=== PATIENT | male | born 1935 | race Caucasian/White ===

== ENCOUNTER 2018-12-21 11:20 | Day surgery (SDC) | payer MEDICARE ==
[2018-12-20 11:58] VITALS: BMI 38.7
--- NOTE | 2018-12-21 14:13 | MRI ---
MRI LUMBAR SPINE WITH AND WITHOUT CONTRAST: DATE: 12/21/2018 HISTORY: 83-year-old male with lumbar radiculopathy and low back pain COMPARISON: None available TECHNIQUE: Multiple sequences obtained in axial and sagittal planes, pre and post IV injection of gadolinium-bas ed contrast agent. FINDINGS: For the purposes of this report, it will be assumed that there are 5 lumbar-type vertebrae. Vertebral body heights are maintained. Marrow edema around a Schmorl's node at right lateral endplate of L3. Otherwise no major bone marrow signal abnormality. No major spondylolisthesis. Conus medullaris terminates at L1. Because of the extremely severe central spinal canal stenosis at L3-4, there is tortuosity of the cauda equina at al l levels superior to this and moderately at all levels inferior to this. No abnormal enhancement of cauda equina. No epidural abscess. Presence of posterior element metallic hardware at lower levels ca uses magnetic susceptibility artifact, making it difficult to evaluate for abnormal enhancement and marrow signal abnormality at the lower levels, especially at the posterior elements. T12-L1:Mild to moderate ligamentum flavum thickening. Mild bilateral facet DJD. Disc space maintained . Minimal disc bulge. Mild central spinal canal stenosis. Moderate right neural foraminal stenosis. Mild to moderate left neural foraminal stenosis. L1-2:Mild disc space narrowing. Mild to moderate diffuse disc bulge. Moderate bilateral neural forami nal stenosis. L2-3:Moderate disc space narrowing. Prominent diffuse disc bulge. Moderate bilateral neural foraminal stenosis. Severe central spinal canal stenosis. Moderate bilateral facet DJD. Slight degenerative retrolisthesis of L2 on L3. L3-4:Severe bilateral facet DJD with significant hypertrophy. Moderate bilateral neural foraminal brandon nosis, left worse than right. Mild to moderate disc space narrowing. In addition to diffuse disc bulge, there is a small-moderate sized central disc herniation with slight superior migration of extr uded disc material not quite reaching pedicle level of L3. Extremely severe central spinal canal stenosis. L4-5:Moderate right neural foraminal stenosis. Possibly severe left neural foraminal stenosis, althou gh left posterior element metallic hardware magnetic susceptibility artifact carotid resulted in apparently worst degree of neural foraminal stenosis at than actually present. Likewise, the presence of bilateral posterior element metallic hardware causes susceptibility artifact that makes it difficult to evaluate the degree of central spinal canal stenosis and especially lateral recess steno sis. Central spinal canal stenosis is probably not severe. Disc space maintained. L5-S1:Severe disc space narrowing. No central stenosis or lateral recess stenosis. Posterior element metallic hardware makes it impossible to evaluate the degree of neural foraminal stenosis. IMPRESSION: 1) lumbar spondylosis with multilevel degenerative disc disease and facet osteoarthrosis of varying d egrees. 2) extremely severe central spinal canal stenosis at L3-4. 3) severe central spinal canal stenosis at L2-3. 4) posterior element metallic hardware causes magnetic susceptibility artifact, which makes it diffic ult to evaluate degree of neural foraminal stenosis bilaterally at L5-S1 and on the left at L4-5, and difficult to evaluate the degree of central spinal canal stenosis at L4-5.
[2018-12-21] MEDS ORDERED: HYDROcodone/Acetaminophen 5/325 mg Tablet ONE (14:18)
== END 2018-12-21 15:00 | disposition home or self-care (01) ==
LOC: SDC/OP 11:20
PROVIDERS: ATTEND Internal Medicine
DX: M47.26 Other spondylosis with radiculopathy, lumbar region (principal); M51.16 Intervertebral disc disorders with radiculopathy, lumbar region; M48.061 Spinal stenosis, lumbar region without neurogenic claudication; G89.29 Other chronic pain; F17.210 Nicotine dependence, cigarettes, uncomplicated; I11.9 Hypertensive heart disease without heart failure; Z79.82 Long term (current) use of aspirin; Z79.899 Other long term (current) drug therapy; Z88.0 Allergy status to penicillin
CPT/HCPCS: 72158

== ENCOUNTER 2018-12-25 14:02 | Outpatient (CLI) | payer MEDICARE ==
--- NOTE | 2018-12-25 15:03 | CT ---
CT LUMBAR SPINE WITHOUT CONTRAST Multiplanar reconstruction and 3D post processing. INDICATION: Lumbar stenosis with claudication. Back pain. FINDINGS: Lumbar vertebrae maintain height. Moderate degenerative changes are present with osteophytes from al l lumbar vertebrae. Degenerative disk changes are noted. Vacuum phenomenon was seen at L3-4 and L4- 5. Loss of disk space is prominent at L5-S1. At L1-2, mild disk bulge. Prominent facet hypertrophy. Mild central canal stenosis. At L2-3, slight posterolisthesis. Disk bulge. Prominent facet and ligamentous hypertrophy. Severe central canal stenosis. Bilateral foraminal stenosis. At L3-4, degenerative disk change. Mild anterolisthesis. Diffuse disk bulge. Prominent facet hyper trophy. Severe central canal stenosis. Bilateral foraminal stenosis. At L4-5, broad-based disk bulge. Severe facet hypertrophy. Severe central canal stenosis. Bilatera l foraminal stenosis. Pedicle screws at L5. The left pedicle screw courses along the superior margin of the left pedicle a nd encroaches into the inferior aspect of the left foramina. There are posterior laminectomy changes at this level. At L5-S1, disk bulge and hypertrophic change. Facet hypertrophy. Mild central canal stenosis. Bila teral foraminal stenosis. Bilateral pedicle screws at S1 extend along the superior aspect of the pedicle and encroach into the inferior aspect of the foramen on both sides. IMPRESSION: 1. Severe central canal stenosis at L2-3 and L3-4 with foraminal stenosis described above. Postoper ative changes at L4-5 and L5-S1 as described. 2. Pedicle screw placement as noted above. POS: CHARITY
== END 2018-12-25 14:03 | disposition home or self-care (01) ==
LOC: TBSIIMAG 14:02
PROVIDERS: ATTEND Neurological Surgery
DX: M48.062 Spinal stenosis, lumbar region with neurogenic claudication (principal); Z98.890 Other specified postprocedural states
CPT/HCPCS: 72131

== ENCOUNTER 2018-12-25 14:53 | Outpatient (CLI) | payer MEDICARE ==
--- NOTE | 2018-12-25 15:15 | RAD ---
EXAM: 3 views of the lumbosacral spine HISTORY: Low back pain COMPARISON: None FINDINGS: 3 views of the lumbosacral spine shows normal height and alignment of the vertebral bodies without fracture or subluxation. Intervertebral disc space narrowing and moderate osteophyte formation is seen throughout the lumbar spine. Facet screws are seen at L4/5 and L5/S1. Alignment is unchanged with flexion and extension. The sacroiliac joints are unremarkable. IMPRESSION: Degenerative changes and post surgical changes of lumbar spine with unchanged alignment w ith bending.
== END 2018-12-25 14:54 | disposition home or self-care (01) ==
LOC: RAD 14:53
PROVIDERS: ATTEND Neurological Surgery
DX: M48.062 Spinal stenosis, lumbar region with neurogenic claudication (principal); M47.816 Spondylosis without myelopathy or radiculopathy, lumbar region; Z98.890 Other specified postprocedural states
CPT/HCPCS: 72100; 72131

== ENCOUNTER 2019-08-29 12:16 | Outpatient (CLI) | payer MEDICARE ==
--- NOTE | 2019-08-29 14:12 | RAD ---
LUMBAR SPINE: 08/29/19 Four views. HISTORY: Back pain. Stenosis. Comparison made to lumbar films of 12/25/18. Facet screws seen posteriorly at L5 and S1 on the prior study are no longer present. Moderate hypertr ophic degenerative spurring is again noted at all levels. Loss of disc space seen at all levels. Prom inent disc narrowing at L5-S1 again noted. Prominent facet hypertrophy is present. There is anterolis thesis at L3-4 which has occurred since the prior study. There are posterior laminectomy changes at L3, L4 and L5. IMPRESSION: Moderate to severe degenerative changes. Very prominent facet hypertrophy. Anterolisthesis at L3-4 veras s occurred since the prior study. POS: SHAYY
== END 2019-08-29 12:17 | disposition home or self-care (01) ==
LOC: ULT 12:16
PROVIDERS: ATTEND Internal Medicine
DX: R06.00 Dyspnea, unspecified (principal); M48.061 Spinal stenosis, lumbar region without neurogenic claudication; R73.9 Hyperglycemia, unspecified; M47.816 Spondylosis without myelopathy or radiculopathy, lumbar region; M43.16 Spondylolisthesis, lumbar region; I08.8 Other rheumatic multiple valve diseases; M89.38 Hypertrophy of bone, other site
CPT/HCPCS: 72120; 93306

== ENCOUNTER 2021-02-24 15:26 | Outpatient (CLI) | payer MEDICARE | END 2021-02-24 15:27 | disposition home or self-care (01) | LOC: SCSMRI 15:26 | PROVIDERS: ATTEND Specialist | DX: M70.62 Trochanteric bursitis, left hip (principal); M43.8X6 Other specified deforming dorsopathies, lumbar region; M87.852 Other osteonecrosis, left femur; S76.012A Strain of muscle, fascia and tendon of left hip, initial encounter ==